=== PATIENT | female | born 1985 | race Caucasian/White ===

== ENCOUNTER 2021-08-14 04:13 | Outpatient (CLI) | payer BC, SELFPAY ==
[2021-08-14 11:06] LABS: HCG Quant, Pregnancy 1568 mIU/mL (1-3)
[2021-08-14 16:52] LABS: Estradiol 164 pg/mL (See Note); Progesterone 20.1 ng/mL (See Table)
== END 2021-08-14 04:14 | disposition home or self-care (01) ==
LOC: LBO 04:13
PROVIDERS: PCP Nurse Practitioner; Visit Provider Obstetrics & Gynecology
DX: Z32.00 Encounter for pregnancy test, result unknown (principal)
CPT/HCPCS: 36415; 82670; 84144; 84702

== ENCOUNTER 2021-08-16 02:44 | Outpatient (CLI) | payer BC, SELFPAY ==
[2021-08-16 09:00] LABS: HCG Quant, Pregnancy 3886 mIU/mL (1-3)
[2021-08-16 18:35] LABS: Estradiol 139 pg/mL (See Note); Progesterone 30.2 ng/mL (See Table)
== END 2021-08-16 02:45 | disposition home or self-care (01) ==
LOC: LBO 02:44
PROVIDERS: PCP Nurse Practitioner; Visit Provider Obstetrics & Gynecology
DX: Z32.00 Encounter for pregnancy test, result unknown (principal)
CPT/HCPCS: 36415; 82670; 84144; 84702

== ENCOUNTER 2021-10-09 02:33 | Outpatient (CLI) | payer OTHER, SELFPAY ==
[2021-10-09 11:33] LABS: Abs Immature Grans 0.03 10^3/uL (0.0-0.06); Absolute Basophil Count 0.04 10^3/uL (0.0-0.2); Absolute Eosinophil Count 0.06 10^3/uL (0.0-0.7); Absolute Lymphocyte Count 1.63 10^3/uL (1.2-3.4); Absolute Monocyte Count 0.47 10^3/uL (0.1-0.8); Absolute Neutrophil Count 4.73 10^3/uL (1.2-6.7); Basophils % 0.6; Eosinophils % 0.9; HGB 12.9 g/dL (11.2-15.7); Immature Grans % 0.4; Lymphocytes % 23.4; MCH 30.1 pg (27.0-33.0); MCHC 33.1 % (32.0-36.0); MCV 90.9 fL (80-95); MPV 11.7 fL (8.0-11.0); Monocytes % 6.8; Neutrophils % 67.9; Nucleated RBC 0 %; Platelet Count 189 10^3/uL (130-400); RBC 4.29 10^6/uL (3.93-5.22); RDW 13.7 % (11.7-14.6); WBC 6.96 10^3/uL (4.4-10.8)
[2021-10-10 10:36] LABS: HIV-1/2 Ag & Ab Screen Negative (Negative)
[2021-10-10 13:42] LABS: Hepatitis B Surface Ag Negative (Negative)
[2021-10-10 14:15] LABS: Hepatitis C Ab w Rflx HCV PCR Negative (Negative)
[2021-10-10 15:05] LABS: Syphilis Total Ab w/Reflex Nonreactive (Nonreactive)
[2021-10-15 00:21] LABS: Result Summary NEGATIVE; Specimen WB Whole Blood
[2021-10-16 01:04] LABS: Specimen WB Whole Blood
== END 2021-10-09 02:34 | disposition home or self-care (01) ==
PROVIDERS: PCP Nurse Practitioner; Visit Provider Advanced Practice Midwife
DX: Z34.91 Encounter for supervision of normal pregnancy, unspecified, first trimester (principal)
CPT/HCPCS: 36415; 81329; 86803; 86850; 86900; 86901; 87340; 87389; 81220; 85025; 86780

== ENCOUNTER 2021-10-09 16:54 | Outpatient (REF) | payer OTHER, SELFPAY ==
[2021-10-09 14:41] LABS: *AMPHETAMINES SCREEN URINE Negative (Negative); *BARBITURATES SCREEN URINE Negative (Negative); *BENZODIAZEPINES SCREEN URINE Negative (Negative); Cannabinoids THC Negative (Negative); Cocaine Screen,Urine Negative (Negative); METHADONE URINE SCREEN Negative (Negative); OPIATES URINE SCREEN Negative (Negative); Tricyclic Antidepressants Negative (Negative)
[2021-10-14 15:00] LABS: Buprenorphine Negative ng/mL (Cutoff: 5.0); Norbuprenorphine Negative ng/mL (Cutoff: 2.5)
== END 2021-10-09 16:55 | disposition home or self-care (01) ==
LOC: LBN 16:54
PROVIDERS: PCP Nurse Practitioner; Visit Provider Advanced Practice Midwife
DX: O09.511 Supervision of elderly primigravida, first trimester (principal)
CPT/HCPCS: 80307; 87086

== ENCOUNTER 2022-02-16 02:42 | Outpatient (CLI) | payer OTHER, SELFPAY ==
[2022-02-16 16:55] LABS: Abs Immature Grans 0.44 10^3/uL (0.0-0.06); Absolute Basophil Count 0.07 10^3/uL (0.0-0.2); Absolute Eosinophil Count 0.09 10^3/uL (0.0-0.7); Absolute Lymphocyte Count 1.85 10^3/uL (1.2-3.4); Absolute Monocyte Count 0.91 10^3/uL (0.1-0.8); Absolute Neutrophil Count 7.92 10^3/uL (1.2-6.7); Basophils % 0.6; Eosinophils % 0.8; HCT 34.7 % (36.0-46.0); HGB 11.7 g/dL (11.2-15.7); Immature Grans % 3.9; Lymphocytes % 16.4; MCH 31.6 pg (27.0-33.0); MCHC 33.7 % (32.0-36.0); MCV 94 fL (80-95); Monocytes % 8.1; Neutrophils % 70.2; Platelet Count 231 10^3/uL (130-400); RDW 13.6 % (11.7-14.6); WBC 11.28 10^3/uL (4.4-10.8)
[2022-02-16 17:02] LABS: Glucose,1 Hr (Glucola) 125 mg/dL (80-140)
== END 2022-02-16 02:43 | disposition home or self-care (01) ==
LOC: LBO 02:42
PROVIDERS: PCP Nurse Practitioner; Visit Provider Obstetrics & Gynecology
DX: Z34.03 Encounter for supervision of normal first pregnancy, third trimester (principal); Z3A.30 30 weeks gestation of pregnancy
CPT/HCPCS: 36415; 82950; 85025

== ENCOUNTER → 2022-03-19 02:06 | Outpatient (CLI) | payer OTHER, SELFPAY ==
--- NOTE | 2022-03-19 07:00 | DI.US_ITS ---
Exam(s) US OB CÉSAR WEIGHT EXAM: US OB CÉSAR WEIGHT CLINICAL HISTORY: growth,o09.819. TECHNIQUE: Transabdominal obstetrical ultrasound performed. COMPARISON: US US OB F/U FACIAL/LVOT/RVOT from 01/30/2022 FINDINGS:: Number of fetuses: One. position: Vertex. Placental location: Anterior no evidence of previa. BIOMETRIC DATA: BPD: 91mm = 36+ 5 weeks HC: 304mm = 33 +5 weeks AC: 321mm = 36+ 0 weeks FL: 71 mm = 36+ 1 weeks EFW: 2786 Gms = 65% Composite Age: 35 weeks 5 days EDC: 18 April 2022 Heart Rate: 149BPM Amniotic fluid index: 13.1 cm. Amount of fluid is within normal limits. IMPRESSION: size and weight are within the expected range. DATA REPOSITORY:
== END ==
PROVIDERS: PCP Nurse Practitioner; Visit Provider Obstetrics & Gynecology
DX: O09.813 Supervision of pregnancy resulting from assisted reproductive technology, third trimester (principal); Z3A.35 35 weeks gestation of pregnancy
CPT/HCPCS: 76816

== ENCOUNTER 2022-03-26 16:27 | Outpatient (REF) | payer OTHER, SELFPAY ==
[2022-03-26 20:44] LABS: *AMPHETAMINES SCREEN URINE Negative (Negative); *BARBITURATES SCREEN URINE Negative (Negative); *BENZODIAZEPINES SCREEN URINE Negative (Negative); Cannabinoids THC Negative (Negative); Cocaine Screen,Urine Negative (Negative); METHADONE URINE SCREEN Negative (Negative); OPIATES URINE SCREEN Negative (Negative)
[2022-03-26 21:00] LABS: Tricyclic Antidepressants Negative (Negative)
[2022-03-31 12:33] LABS: Buprenorphine Negative ng/mL (Cutoff: 5.0); Norbuprenorphine Negative ng/mL (Cutoff: 2.5)
== END 2022-03-26 16:28 | disposition home or self-care (01) ==
LOC: LBN 16:27
PROVIDERS: PCP Nurse Practitioner; Visit Provider Obstetrics & Gynecology
DX: Z34.93 Encounter for supervision of normal pregnancy, unspecified, third trimester (principal); Z36.85 Encounter for antenatal screening for Streptococcus B; Z3A.36 36 weeks gestation of pregnancy
CPT/HCPCS: 80307; 87081

== ENCOUNTER 2022-04-20 08:07 | Inpatient (IN) | payer OTHER, SELFPAY ==
[2022-04-20] VITALS (235 sets, daily range): BP systolic 44–121; BP diastolic 24–75; PULSE 0–185; RESP 12; TEMP 36.8–37.6; O2SAT 97–100; BMI 27.1
--- NOTE | 2022-04-20 08:58 | HPE_ITS ---
Date of service: 04/20/22 Time of Service: 08:59 Assessment and Plan Assessment and plan (1) High risk due to assisted reproductive technology: Status: Acute Assessment and plan: Term high risk that has been reasonably uncomplicated. Labor induction due to advanced maternal age. Cervix is favorable approximately 3 to 4 cm. We will begin Pitocin augmentation of labor. Pain control as needed. Anticipate vaginal delivery. All questions were answered. (2) Encounter for supervision of normal intrauterine in primigravida, antepartum: Status: Acute (3) Advanced maternal age (AMA) in : Status: Acute OB-HPI Labor/Delivery History of Present Illness Reason for Visit: PRE MAURA Chief Complaint: Scheduled Induction of Labor Indication for Induction: Other (High risk , advanced maternal age). VALENTINA Calculator Estimated Delivery Date Method Current WG Current Estimate 04/21/22 Conception 39w 6d Other Estimates 04/19/22 LMP (Certain) 40w 1d 04/20/22 Ultrasound #1 40w 0d Comments: Patient seen on the center today for labor induction. She is of advanced maternal age at 39 weeks and 6 days. She is having regular contractions approximately every 4 minutes. History of Present Expected Delivery Route/Plan - MD SANCHEZ - Manan Vasquez. Specific Issues/Plan 1. AMA: normal [place] [facility] [place] consult -Will take ASA due to nullip and AMA. - IOL after 39w EGA. 2. IVF (pt has lean PCOS with anovulation). Pt has 2 adopted kids 8 & 10yrs. 3. Vanishing twin: 2 embryos transfered, at 6wks there were viable twins, then at 8wks only 1 viable 4. Considering TL if needs C/S. Informed Consent Informed Consent: Induction of Labor Review of Systems Narrative: Baby is moving and active. No signs or symptoms of preeclampsia overall doing well Constitutional Constitutional: Reports as per HPI Eyes Eyes: Reports as per HPI and Reports system reviewed and no additional complaints, except as documented ENT Ears, Nose, Mouth, and Throat: Reports system reviewed and no additional complaints, except as documented and Reports as per HPI Cardiovascular Cardiovascular: Reports as per HPI and Reports system reviewed and no additional complaints, except as documented Respiratory Respiratory: Reports as per HPI, Reports system reviewed and no additional complaints, except as documented and Denies cough Gastrointestinal Gastrointestinal: Reports as per HPI and Reports system reviewed and no additional complaints, except as documented Genitourinary Genitourinary: Reports system reviewed and no additional complaints, except as documented and Reports as per HPI Musculoskeletal Musculoskeletal: Reports system reviewed and no additional complaints, except as documented Neurologic Neurologic: Reports system reviewed and no additional complaints, except as documented Psychiatric Psychiatric: Reports system reviewed and no additional complaints, except as documented PFSH All Active Problems (Updated 03/02/22 @ 09:23 by Maria R Campo MD) High risk due to assisted reproductive technology (Acute) Placenta previa affecting delivery (Acute) Encounter for supervision of normal intrauterine in primigravida, antepartum (Acute) (Acute) History of PCOS (Acute) Family history of ankylosing spondylitis (Acute) Family history of multiple sclerosis (Acute) Advanced maternal age (AMA) in (Acute) conceived through in vitro fertilization (Acute) Anxiety (Acute) Medical History (Updated 03/02/22 @ 09:23 by Maria R Campo MD) Elevated hematocrit PCOS (polycystic ovarian syndrome) Plantar wart of right foot Surgical History (Updated 10/09/21 @ 10:17 by Ruthie Santiago CNM) [place] teeth extracted Family History (Updated 10/09/21 @ 10:24 by Ruthie Santiago CNM) Mother , 61 Myelofibrosis Depression Hyperlipidemia Father Depression Hyperlipidemia Sarcoidosis Sister Depression Multiple sclerosis PCOS (polycystic ovarian syndrome) Brother Alcohol use disorder Ankylosing spondylitis of multiple sites in spine Maternal Grandfather , 70 Lung cancer Paternal Grandfather , 62 Pancreas cancer Maternal Grandmother , 78 Asthma Heart disease Paternal Grandmother , 61 Melanoma Breast cancer Self PCOS (polycystic ovarian syndrome) Social History (Updated 12/11/21 @ 08:30 by Jessica Roth MD) Smoking/Tobacco Use Status: Never Second Hand Exposure: Yes Smoking risk assessment performed?: Yes Alcohol Intake: current Alcohol Intake frequency: holidays/special occasions o nly Alcohol type: beer Drug use: Never Substance use type: does not use Caregiver/Support person: No Household members: spouse, children and other Details: [place], Shawn, Housing: house Communication Needs: None Do you need help understanding health information?: Never current occupation: [employer] coordinator. Pets and animals: Yes Pets and animals: cat(s), dog(s) and farm animals Sexually active: Yes Do you think of yourself as: straight/heterosexual Current gender identity: female What is your relationship status?: How often do you talk on the phone with friends or family?: three or more times per week How often do you get together with friends or relatives?: twice per week Do you belong to any clubs or organized social groups?: no Panel score (0-1 are the most socially isolated patients): 2 What type of physical activity do you participate in: walking Duration: 15-30 minutes/day Frequency: 3-4 times per week Opal/Jain: Orthodoxy Special opal needs: No Seatbelt use: always Helmet use: Yes Helmet use: always Drive intox or ride w/intox skidder driver: No Additional Social history: 2 adopted children (one adopted at in 2010 and one foster to adopt born in 2013) History History 1 Para 0 Hx # Term Pregnancies 0 Multiple births 0 Hx # Pregnancies 0 Ectopic pregnancies 0 AB induced 0 Hx Number of Living Children 0 AB spontaneous 0 Meds Allergies and Home Medications Allergies Allergy/AdvReac Type Severity Reaction Status Date / Time No Known Allergies Allergy Verified 04/16/22 08:20 Home Medications Medication Instructions Recorded Confirmed Type prenat.vits,petr,wka-gkje-muvkl 1 tab PO DAILY 09/20/21 04/20/22 History aspirin 81 mg tablet,delayed 81 mg PO DAILY 11/03/21 04/16/22 History release (Adult Aspirin Regimen) citalopram 20 mg tablet 20 mg PO DAILY #90 tabs 11/03/21 04/20/22 Rx magnesium 250 mg tablet 250 mg PO DAILY 03/02/22 04/20/22 History docusate sodium 100 mg tablet 100 mg PO DAILY 04/16/22 04/20/22 History guar gum 1 tbsp PO DAILY 04/16/22 04/20/22 History Exam Physical Exam Vital Signs Reviewed: Yes Constitutional Constitutional: no acute distress Detailed Labor and Delivery Exam Dilation: 4 Effacement (%): 80 station: -2 Position: OA Cervix position: mid Consistency: soft Garza Score: Cervical Points Exam 0 1 2 3 Dilation Closed 1-2cm 3-4 cm 5-6cm Effacement 0-30% 40-50% 60-70% 80% Consistency Firm Medium Soft Station -3 -2 -1,0 +1,+2 Position Posterior Mid Anterior GARZA Score(Cervical Ripeness Score): 9 Amniotic Membrane Status: Intact Contraction Frequency(min): 4 Contraction Duration(sec): 60 Fetus A Heart Rate Baseline: 140 Monitor Accelerations: Present Monitor Decelerations: None Variability: Moderate (6-25 BPM) Presentation: Vertex Categories: Category I HEENT Exam HEENT Exam: Normal Neck Exam Neck Exam: Normal Respiratory Exam Respiratory Exam: Normal Cardiovascular Exam Cardiovascular Exam: Normal Exam Exam: Normal Extremities Exam Extremities Exam: Normal Skin Exam Skin Exam: Normal Psychiatric Exam Psychiatric Exam: Normal Risk Assessment Risk for Shoulder Dystocia Historical/Initial OB: NEGATIVE FOR: Pelvic Abnormality, Pre- BMI>30, Previous Shoulder Dystocia or Previous Macrosomia Date/Initial: 10/09/21 Delivery Plan @ 40 wks: Vaginal delivery. Risk for Pre-Eclampsia Date Initiated/Initials: 10/09/21: Yes, if one or more: NEGATIVE FOR: Hx Pre-E/Gest HTN, Chronic HTN, Multiple Gestation, Pre-gestational DM, Renal Disease, Systemic Lupus or APA Syndrome Yes, if 2 or more: POSITIVE FOR: Nulliparity and Age>= 35 yrs; NEGATIVE FOR: >10yr btwn pregnancies, BMI>30, ethinicty, Mother/Sister w/ Pre-E or Previous IUGR Risk for Post- Hemorrhage Initial: NEGATIVE FOR: Multiple Gestation, Previous PPH, Known Clotting Deficiency, Grand Multiparity or Anticoagulation Risks Reviewed Risks Reviewed Upon Admission: Yes
[2022-04-20 09:20] LABS: Source Nasal/Nares
[2022-04-20] MEDS: Lactated Ringers 1,000 ML 125 ML IV ×2 (09:20→19:48)
[2022-04-20 09:22] LABS: HCT 42.4 % (36.0-46.0); HGB 14.7 g/dL (11.2-15.7); MCH 31.7 pg (27.0-33.0); MCHC 34.7 % (32.0-36.0); MCV 92 fL (80-95); MPV 11.8 fL (8.0-11.0); Platelet Count 181 10^3/uL (130-400); RBC 4.63 10^6/uL (3.93-5.22); RDW 14.3 % (11.7-14.6)
[2022-04-20] MEDS: Oxytocin/Normal Saline 30 UNIT/500 ML BAG 2 UNITS IV (09:27)
[2022-04-20 10:12] LABS: COVID-19 PCR Negative (Negative)
--- NOTE | 2022-04-20 12:19 | W.PM.OBNL1 ---
Date of service: 04/20/22 Time of Service: 12:19 Informed Consent Informed Consent: Induction of Labor Assessment and Plan Assessment and plan (1) High risk due to assisted reproductive technology: Status: Acute Assessment and plan: Labor induction at term. Continue Pitocin augmentation. Will perform artificial rupture of membranes when cervix more dilated. Pain control as needed. Anesthesia aware. Objective Abnormal lab results 04/20/22 Range/Units 09:15 WBC 11.00 H (4.4-10.8) 10^3/uL MPV 11.8 H (8.0-11.0) fL Temp Pulse Resp BP 98.8 F 90 12 112/75 04/20/22 09:42 04/20/22 12:19 04/20/22 09:42 04/20/22 12:19 Laboratory Results WBC 11.00 10^3/uL (4.4-10.8) H 04/20/22 09:15 RBC 4.63 10^6/uL (3.93-5.22) 04/20/22 09:15 Hgb 14.7 g/dL (11.2-15.7) 04/20/22 09:15 Hct 42.4 % (36.0-46.0) 04/20/22 09:15 MCV 92 fL (80-95) 04/20/22 09:15 MCH 31.7 pg (27.0-33.0) 04/20/22 09:15 MCHC 34.7 % (32.0-36.0) 04/20/22 09:15 RDW 14.3 % (11.7-14.6) 04/20/22 09:15 Plt Count 181 10^3/uL (130-400) 04/20/22 09:15 MPV 11.8 fL (8.0-11.0) H 04/20/22 09:15 COVID-19 Source Nasal/Nares 04/20/22 08:55 SARS-CoV-2 (PCR) Negative (Negative) 04/20/22 08:55 Patient ABO/Rh A Positive 04/20/22 09:15 Antibody Screen NEGATIVE 04/20/22 09:15 Subjective Patient Reports: No new Complaints Interval history since last seen: Patient is doing well. Pain is well controlled. Contractions are coming more frequently and slightly more intense but not particularly painful. Results Hemoglobin/Hematocrit: Hgb 14.7 g/dL (11.2-15.7) 04/20/22 09:15 Hct 42.4 % (36.0-46.0) 04/20/22 09:15 Abnormal Lab Findings: Abnormal Labs 04/20/22 09:15 WBC 11.00 H MPV 11.8 H
--- NOTE | 2022-04-20 13:20 | W.ANESPRE ---
General Info Date of Service Date Performed: 04/20/22 Height: 5 ft 4.75 in Weight: 73.482 kg Body Mass Index (BMI): 27.1 Meds Allergies and Home Medications Allergies Allergy/AdvReac Type Severity Reaction Status Date / Time No Known Allergies Allergy Verified 04/16/22 08:20 Home Medication Medication Instructions Recorded prenat.vits,petr,ddc-bole-zbqjo 1 tab PO DAILY 09/20/21 aspirin 81 mg tablet,delayed 81 mg PO DAILY 11/03/21 release (Adult Aspirin Regimen) citalopram 20 mg tablet 20 mg PO DAILY #90 tabs 11/03/21 magnesium 250 mg tablet 250 mg PO DAILY 03/02/22 docusate sodium 100 mg tablet 100 mg PO DAILY 04/16/22 guar gum 1 tbsp PO DAILY 04/16/22 Current Visit Medications: Current Medications Generic Name Dose Route Start Last Admin Trade Name Freq PRN Reason Stop Dose Admin Sodium Chloride 500 mls @ 0 mls/hr 04/20/22 08:56 Saline 500ml Bag IV PRN PRN As Directed Oxytocin/Sodium Chloride 30 unit in 500 mls @ 1 mls/hr 04/20/22 09:00 04/20/22 13:14 Pitocin/Normal Saline IV 16 milliunits/min INFUSION YING 16 mls/hr Titration Protocol 1 MILLIUNITS/MIN Ringer's Solution 1,000 mls @ 125 mls/hr 04/20/22 09:00 04/20/22 09:20 IV 125 mls/hr INFUSION YING Administration IV Miscellaneous Supplies 1 each 04/20/22 09:00 Iv Access IV DIRECTED YING Sodium Chloride 0 ml 04/20/22 08:56 Normal Saline Flush 10 Ml Syr IVP PRN PRN PFSH Active Problems Active Problems: Problem Status Onset Code High risk due to assisted reproductive technology O09.819 Placenta previa affecting delivery O44.00 Encounter for supervision of normal intrauterine in primigravida, antepartum Z34.00 Z34.90 History of PCOS Z87.42 Family history of ankylosing spondylitis Z82.69 Family history of multiple sclerosis Z82.0 Advanced maternal age (AMA) in conceived through in vitro fertilization O09.819 Anxiety F41.9 Medical History Medical History (Updated 03/02/22 @ 09:23 by Maria R Campo MD) Elevated hematocrit PCOS (polycystic ovarian syndrome) Plantar wart of right foot Surgical History Surgical History (Updated 10/09/21 @ 10:17 by Ruthie Santiago CNM) [place] teeth extracted Tobacco Smoking/Tobacco Use Status: Never Second hand exposure: Yes Alcohol Alcohol Intake: current Alcohol intake frequency: holidays/special occasions only Alcohol type: beer Substance Use Substance use: Never Substance use type: does not use Prental History History 1 Para 0 Hx # Term Pregnancies 0 Multiple births 0 Hx # Pregnancies 0 Ectopic pregnancies 0 AB induced 0 Hx Number of Living Children 0 AB spontaneous 0 Vital Signs and Lab Results Vital Signs Most Recent Vital Signs in EMR: Most Recent Vital Signs Temp Pulse Resp BP 37.1 C 91 H 12 112/75 04/20/22 09:42 04/20/22 13:16 04/20/22 09:42 04/20/22 12:19 Lab Results Result Diagrams: 04/20/22 09:15 Blood Type / Crossmatch: Patient ABO/Rh A Positive 04/20/22 Antibody Screen NEGATIVE 04/20/22 Complete Blood Count: White Blood Count 11.00 10^3/uL (4.4-10.8) H 04/20/22 09:15 Red Blood Count 4.63 10^6/uL (3.93-5.22) 04/20/22 09:15 Hemoglobin 14.7 g/dL (11.2-15.7) 04/20/22 09:15 Hematocrit 42.4 % (36.0-46.0) 04/20/22 09:15 Platelet Count 181 10^3/uL (130-400) 04/20/22 09:15 Complete Metabolic Panel: No Data to Display Liver Function Panel: No Data to Display Coagulation Panel: No Data to Display Cardiac Panel: No Data to Display Arterial Blood Gas: No Data to Display Venous Blood Gas: No Data to Display Pancreas Panel: No Data to Display Thyroid Panel: No Data to Display Infectious Disease: Coronavirus (COVID-19)(PCR) Negative (Negative) 04/20/22 08:55 Coronavirus 2019 Source Nasal/Nares 04/20/22 08:55 Blood Cultures: No Data to Display Toxicology Panel: Urine Amphetamines Screen Negative (Negative) 03/26/22 14:45 Urine Benzodiazepines Screen Negative (Negative) 03/26/22 14:45 Urine Barbiturates Screen Negative (Negative) 03/26/22 14:45 Urine Cocaine Screen Negative (Negative) 03/26/22 14:45 Urine Methadone Screen Negative (Negative) 03/26/22 14:45 Urine Opiates Screen Negative (Negative) 03/26/22 14:45 Ur Tricyclic Antidepressants Screen Negative (Negative) 03/26/22 14:45 Ur Tetrahydrocannabinol (THC) Scrn Negative (Negative) 03/26/22 14:45 Panel: No Data to Display Anesthesia Assessment and Plan Anesthesia History Personal History: No History of Anesthesia Complications Family History: No Family History of Anesthesia Complications Exercise Tolerance Exercise Tolerance: Metabolic Equivalents>4 Pertinent Negatives Pertinent Negatives: No Major Cardiovascular Symptoms or Complaints, No Major Pulmonary Symptoms or Complaints and No History of CVA/TIA Cardiac & Pulmonary Exam Cardiac Exam: Normal S1/S2 Heart Sounds Pulmonary Exam: Clear Bilateral Breath Sounds Implantable Cardiac Device Does patient have a Pacemaker or an ICD?: No Airway Exam Known Difficult Airway: No Mallampati Class: 2 Mouth Opening: Normal (> 3cm) Thyromental Distance: Greater than 3 cm Neck Range of Motion: Full ROM Neck Circumference: Normal Teeth Condition: Normal Dentition ASA Classification ASA Score: ASA 2 Emergency Case?: No NPO Status NPO Status: Full Stomach Status Status: Confirmed Anesthesia Plan Resuscitation Status: Full Code Anesthesia Technique: Epidural Anesthesia (GA with ETT emergency backup) Airway Planned: Natural Airway Pain Management: Surgeon and patient request nerve block Monitors Used: Standard Monitors Preoperative Comments:: Reports some recent sciatica on right side. Patient states she believes it might be the babys position.
--- NOTE | 2022-04-20 14:15 | W.PM.OBNL1 ---
Date of service: 04/20/22 Time of Service: 14:15 Informed Consent Informed Consent: Induction of Labor Pelvic Exam Dilation: 4 Effacement (%): 80 station: -2 Position: OA Cervix Position: mid Consistency: soft Comments: Artificial rupture of membranes for lightly meconium stained fluid Fetus A Monitor: External (US) Heart Rate Baseline: 135 Presentation: Cephalic Variability: Moderate (6-25 BPM) Categories: Category I FHR Rhythm: Regular Accelerations: 15 X 15 Amniotic Membrane Status: Ruptured Rupture Method: Artifical Amniotic Fluid: Meconium (Light) Amount: Moderate Date of Membrane Rupture: 04/20/22 Time of Membrane Rupture: 14:17 Assessment and Plan Assessment and plan (1) High risk due to assisted reproductive technology: Status: Acute Assessment and plan: Term labor induction. Pitocin at 18 milliunits. Contractions every 3 minutes. Artificial rupture of membranes for light meconium stained fluid. Cervix is 4 cm, 80%, -2. Patient will want epidural when her pain is worse. All questions were answered. Continue current management. Anticipate vaginal delivery Objective Abnormal lab results 04/20/22 Range/Units 09:15 WBC 11.00 H (4.4-10.8) 10^3/uL MPV 11.8 H (8.0-11.0) fL Temp Pulse Resp BP 98.8 F 89 12 112/75 04/20/22 09:42 04/20/22 14:12 04/20/22 09:42 04/20/22 12:19 Laboratory Results WBC 11.00 10^3/uL (4.4-10.8) H 04/20/22 09:15 RBC 4.63 10^6/uL (3.93-5.22) 04/20/22 09:15 Hgb 14.7 g/dL (11.2-15.7) 04/20/22 09:15 Hct 42.4 % (36.0-46.0) 04/20/22 09:15 MCV 92 fL (80-95) 04/20/22 09:15 MCH 31.7 pg (27.0-33.0) 04/20/22 09:15 MCHC 34.7 % (32.0-36.0) 04/20/22 09:15 RDW 14.3 % (11.7-14.6) 04/20/22 09:15 Plt Count 181 10^3/uL (130-400) 04/20/22 09:15 MPV 11.8 fL (8.0-11.0) H 04/20/22 09:15 COVID-19 Source Nasal/Nares 04/20/22 08:55 SARS-CoV-2 (PCR) Negative (Negative) 04/20/22 08:55 Patient ABO/Rh A Positive 04/20/22 09:15 Antibody Screen NEGATIVE 04/20/22 09:15 Results Hemoglobin/Hematocrit: Hgb 14.7 g/dL (11.2-15.7) 04/20/22 09:15 Hct 42.4 % (36.0-46.0) 04/20/22 09:15 Abnormal Lab Findings: Abnormal Labs 04/20/22 09:15 WBC 11.00 H MPV 11.8 H
[2022-04-20] MEDS: Lactated Ringers 1,000 ML 999 ML IV (15:35)
--- NOTE | 2022-04-20 16:02 | W.ANESNEU ---
Epidural/Spinal Catheter Date Performed: 04/20/22 Procedure Start: 15:39 Procedure Stop: 15:51 Requesting Provider: Faustina Aguilar Procedure Location: Obstetrics (304) Reason Performed: Labor Epidural Standard Monitors Applied: Blood Pressure and SpO2 Patient Position: Sitting Sedation Given (Indicate Dose Given): No Sedation given Patient Mental Status: Awake Sterility: Hand Hygiene, Surgical Cap, Surgical Mask, Sterile Gloves, Sterile Drape/Sheet and Chlorhexidine Procedure Location: L2-L3 Interspace Epidural Needle: Tuohy 17 Guage Needle Length: 3.5 Inch Needle Approach: Midline Epidural Procedure: Skin Prepped, Sterile Drape Placed, 1% Lidocaine to skin and subcutaneous tissue with 25G needle, Tuohy Needle placed, JORGE to Saline Used, Epidural Catheter Placed, Negative Heme, Negative CSF Flow and Tuohy Needle Removed Catheter Placed?: Catheter Placed Test Dose (Indicate Dose Given): 5ml 1.5% Lidocaine with 1:200K Epinephrine Given and Negative Test Dose Loss of Resistance Depth (cm): 6 Catheter depth at skin (cm): 12 Dressing: Sorbaview Dressing Placed, Mastisol Used and Dressing reinforced with Tape Epidural Provider Bolus (Indicate Dose Given): Total Ropivacaine 0.125% with Fentanyl 2mcg/ml Given from pump. (ml) Dose:: 10 ml Additives (Indicate Dose Given ): None Infusion Medication: Medication Infusion Began Medication Infusion: Ropivacaine 0.125% with Fentanyl 2mcg/ml Maintenance Infusion Rate (ml/hour): 10 PCEA Bolus Dose (ml): 5 Block Level: T10 Paresthesia: None Ultrasound: Not Used Number of Attempts (See previous attempts in note section): 1 Procedure Tolerated: No Complications and Patient tolerated well Procedure Outcome: Successful Performed By: Malick Ojeda
--- NOTE | 2022-04-20 17:54 | W.PM.OBNL1 ---
Date of service: 04/20/22 Time of Service: 17:55 Informed Consent Informed Consent: Induction of Labor Pelvic Exam Dilation: 6 station: -1 Position: OA Cervix Position: mid Consistency: soft Contractions Monitor Mode: External Contraction Frequency(min): 3 Fetus A Heart Rate Baseline: 130 Presentation: Vertex Variability: Moderate (6-25 BPM) Accelerations: 15 X 15 Objective Abnormal lab results 04/20/22 Range/Units 09:15 WBC 11.00 H (4.4-10.8) 10^3/uL MPV 11.8 H (8.0-11.0) fL Temp Pulse Resp BP Pulse Ox 98.2 F 69 12 108/69 99 04/20/22 17:25 04/20/22 17:52 04/20/22 09:42 04/20/22 17:22 04/20/22 17:44 Laboratory Results WBC 11.00 10^3/uL (4.4-10.8) H 04/20/22 09:15 RBC 4.63 10^6/uL (3.93-5.22) 04/20/22 09:15 Hgb 14.7 g/dL (11.2-15.7) 04/20/22 09:15 Hct 42.4 % (36.0-46.0) 04/20/22 09:15 MCV 92 fL (80-95) 04/20/22 09:15 MCH 31.7 pg (27.0-33.0) 04/20/22 09:15 MCHC 34.7 % (32.0-36.0) 04/20/22 09:15 RDW 14.3 % (11.7-14.6) 04/20/22 09:15 Plt Count 181 10^3/uL (130-400) 04/20/22 09:15 MPV 11.8 fL (8.0-11.0) H 04/20/22 09:15 COVID-19 Source Nasal/Nares 04/20/22 08:55 SARS-CoV-2 (PCR) Negative (Negative) 04/20/22 08:55 Patient ABO/Rh A Positive 04/20/22 09:15 Antibody Screen NEGATIVE 04/20/22 09:15 Subjective Interval history since last seen: Patient is seen and examined this evening. Doing well. Comfortable with epidural. Category 1 tracing. Contractions every 3 minutes. Reasonable cervical change with cervix that is 6 cm, 80%, -1 station. Results Hemoglobin/Hematocrit: Hgb 14.7 g/dL (11.2-15.7) 04/20/22 09:15 Hct 42.4 % (36.0-46.0) 04/20/22 09:15 Abnormal Lab Findings: Abnormal Labs 04/20/22 09:15 WBC 11.00 H MPV 11.8 H
--- NOTE | 2022-04-20 19:25 | W.PM.OBNL1 ---
Date of service: 04/20/22 Time of Service: 19:25 Informed Consent Informed Consent: Induction of Labor Pelvic Exam Dilation: 9 Effacement (%): 100 station: +1 Position: OA Contractions Monitor Mode: External Contraction Frequency(min): 3 Contraction Duration(sec): 60 Fetus A Heart Rate Baseline: 130 Variability: Moderate (6-25 BPM) Categories: Category I Objective Abnormal lab results 04/20/22 Range/Units 09:15 WBC 11.00 H (4.4-10.8) 10^3/uL MPV 11.8 H (8.0-11.0) fL Temp Pulse Resp BP Pulse Ox 98.2 F 84 12 101/63 99 04/20/22 18:27 04/20/22 19:24 04/20/22 09:42 04/20/22 18:27 04/20/22 17:44 Laboratory Results WBC 11.00 10^3/uL (4.4-10.8) H 04/20/22 09:15 RBC 4.63 10^6/uL (3.93-5.22) 04/20/22 09:15 Hgb 14.7 g/dL (11.2-15.7) 04/20/22 09:15 Hct 42.4 % (36.0-46.0) 04/20/22 09:15 MCV 92 fL (80-95) 04/20/22 09:15 MCH 31.7 pg (27.0-33.0) 04/20/22 09:15 MCHC 34.7 % (32.0-36.0) 04/20/22 09:15 RDW 14.3 % (11.7-14.6) 04/20/22 09:15 Plt Count 181 10^3/uL (130-400) 04/20/22 09:15 MPV 11.8 fL (8.0-11.0) H 04/20/22 09:15 COVID-19 Source Nasal/Nares 04/20/22 08:55 SARS-CoV-2 (PCR) Negative (Negative) 04/20/22 08:55 Patient ABO/Rh A Positive 04/20/22 09:15 Antibody Screen NEGATIVE 04/20/22 09:15 Subjective Interval history since last seen: Patient seen, having more mucoid discharge along with bloody show. Comfortable with epidural. Cervical exam is not 9 cm, +1 station. Category 1 heart rate tracing. Anticipate vaginal delivery. Continue Pitocin augmentation at 14 milliunits Results Hemoglobin/Hematocrit: Hgb 14.7 g/dL (11.2-15.7) 04/20/22 09:15 Hct 42.4 % (36.0-46.0) 04/20/22 09:15 Abnormal Lab Findings: Abnormal Labs 04/20/22 09:15 WBC 11.00 H MPV 11.8 H
[2022-04-20] MEDS: Acetaminophen 500 MG TAB (21:58)
--- NOTE | 2022-04-20 22:09 | W.PM.OBNL1 ---
Date of service: 04/20/22 Time of Service: 22:09 Informed Consent Informed Consent: Induction of Labor Objective Abnormal lab results 04/20/22 Range/Units 09:15 WBC 11.00 H (4.4-10.8) 10^3/uL MPV 11.8 H (8.0-11.0) fL Temp Pulse Resp BP Pulse Ox 99.7 F H 101 H 12 119/61 99 04/20/22 21:58 04/20/22 22:08 04/20/22 09:42 04/20/22 21:26 04/20/22 17:44 Laboratory Results WBC 11.00 10^3/uL (4.4-10.8) H 04/20/22 09:15 RBC 4.63 10^6/uL (3.93-5.22) 04/20/22 09:15 Hgb 14.7 g/dL (11.2-15.7) 04/20/22 09:15 Hct 42.4 % (36.0-46.0) 04/20/22 09:15 MCV 92 fL (80-95) 04/20/22 09:15 MCH 31.7 pg (27.0-33.0) 04/20/22 09:15 MCHC 34.7 % (32.0-36.0) 04/20/22 09:15 RDW 14.3 % (11.7-14.6) 04/20/22 09:15 Plt Count 181 10^3/uL (130-400) 04/20/22 09:15 MPV 11.8 fL (8.0-11.0) H 04/20/22 09:15 COVID-19 Source Nasal/Nares 04/20/22 08:55 SARS-CoV-2 (PCR) Negative (Negative) 04/20/22 08:55 Patient ABO/Rh A Positive 04/20/22 09:15 Antibody Screen NEGATIVE 04/20/22 09:15 Subjective Interval history since last seen: Patient has now been pushing for approximately 1 hour. Good maternal effort. No maternal exhaustion. heart tones intermittently as high as 190, baseline 170s. Maternal temperature of 99.6. Fluid bolus given. Oral Tylenol given. Anesthesia in OR crew notified. Pediatrics notified. Patient understands that there may be need for operative vaginal delivery versus section. We will continue with pushing effort as baby has good Variability. Results Hemoglobin/Hematocrit: Hgb 14.7 g/dL (11.2-15.7) 04/20/22 09:15 Hct 42.4 % (36.0-46.0) 04/20/22 09:15 Abnormal Lab Findings: Abnormal Labs 04/20/22 09:15 WBC 11.00 H MPV 11.8 H
[2022-04-20] MEDS: Oxytocin/Normal Saline 30 UNIT/500 ML BAG 167 UNITS IV (23:28)
--- NOTE | 2022-04-20 23:37 | PLAC_PTH ---
PATIENT: Bren Vasquez LOC: OBS U#:[id number] AGE/SX: 36/F ROOM: OBS.304 RE04/20/[address]: Maria R Campo MD : 1985 BED: A DIS: 04/23/2022 SPEC #: [id number] RECD: 04/24/22 12:47 STATUS: MELANI REQ #: [id number] MARCELO: 04/20/22 23:[address]: Maria R Campo DEPT: Surgical Specimen RECD BY: Leonie Andrews ENTERED: 04/24/22 12:48 SP TYPE: PLAC OTHR DR: Gela Suarez, PhD CODING AND REIMBURSEMENT SPECIALIST Tissues: 1 - PLACENTA (3RD TRIMESTER) Procedures: GROSS AND MICRO LEVEL 5 Comments: [id number]
[2022-04-20] MEDS: Lidocaine 1% Multi-Dose 20 ML VIAL IJ (23:45)
[2022-04-21] VITALS (99 sets, daily range): BP systolic 74–116; BP diastolic 38–79; PULSE 78–170; RESP 16–17; TEMP 36.8–37.4; O2SAT 96–100
[2022-04-21] MEDS: miSOPROStol 200 MCG TAB 400 MCG SL (00:10)
[2022-04-21] MEDS: Tranexamic Acid 1,000 MG/10 ML VIAL 1000 MG (00:13)
[2022-04-21 00:52] LABS: Abs Immature Grans 0.25 10^3/uL (0.0-0.06); HGB 10.5 g/dL (11.2-15.7); MCH 31.9 pg (27.0-33.0); MCHC 33.9 % (32.0-36.0); MCV 94 fL (80-95); MPV 12.1 fL (8.0-11.0); Platelet Count 177 10^3/uL (130-400); RBC 3.29 10^6/uL (3.93-5.22); RDW 14.3 % (11.7-14.6); RDW-SD 48.6 fL; WBC 22.62 10^3/uL (4.4-10.8)
[2022-04-21] MEDS: Lactated Ringers 1,000 ML 999 ML IV (00:55)
[2022-04-21] MEDS: Lactated Ringers 1,000 ML 150 ML IV (00:56)
[2022-04-21 01:05] LABS: Absolute Lymphocyte Count 1.81 10^3/uL (1.2-3.4); Absolute Monocyte Count 2.71 10^3/uL (0.1-0.8); Diff Comment Manual Differential; RBC Morphology Normal
[2022-04-21 01:07] LABS: PTT Activated 25.4 sec (21.0-27.5); Prothrombin Time 10.4 sec (9.3-11.0)
--- NOTE | 2022-04-21 01:50 | PDOC.ANES ---
Date of service: 04/21/22 Time of Service: 01:50 Anesthesia Note Report Anesthesia Note: Called to bedside for patient with epidural in place, patient was immediately post- and appeared to have had significant blood loss. Patient was symptomatically hypotensive and tachycardic. I assessed at bedside, retrieved phenylephrine and administered throughout my time at bedside two IVP doses of 80 mcg a piece and two of 160 mcg a piece. Patient responded well overall with to the medicine in conjunction with an ongoing fluid bolus and eventually blood to the bedside. I did establish PIV access to the left AC (18G) and blood was run through it. Near the end of my care at bedside for this episode patient noted that she was experiencing pain from the IV radiating down to her left thumb and in her elbow. IV site assessed and patent with good blood return. No exacerbation of pain with IV flush. Blood discontinued from that site and moved to her right hand 20G. On further discussion with patent and due to ongoing discomfort PIV was removed from left AC by RN. Please see OB RN notes regarding timeline and trended VS. I discussed care with patient and spouse, denied current questions. I will see the patient again in the morning.
--- NOTE | 2022-04-21 02:15 | OBVDS_ITS ---
Date of service: 04/21/22 Time of Service: 02:15 OB Labor/ Delivery Information Baby A Delivery Delivery Method: Spontaneaous Presentation: Vertex Cephalic Position: Vertex Vertex Position: Right Occipital Anterior Cord Description-Baby A: 3 Vessels Cord Description Comment: long Amniotic Fluid: Bloody Estimated Blood Loss: ~1000 during delivery process, QBL post delivery 1125 Delivery Outcome: Liveborn Infant Complications: none Providers Doctor: Faustina Aguilar Campaign Director: Allen Mackey Nurse: Petra Jaimes Nurse: Sae Patel Labor/Delivery Information Number of Babies in Womb: 1 Steroids Given: None Reason Steroids Not Administered: N/A Group Beta Strep: Negative Antibiotics Administered: No Rubella Status: Immune Blood Type: A+ Varicella Immunity: Immune Shoulder Dystocia: No Note: Patient was admitted on 04/20/2022 for labor induction at 39-5/7 weeks gestation due to advanced maternal age and history of high risk due to IVF. On presentation, she had been noted to be in early active labor with a cervix that was 3 cm dilated. She had Pitocin augmentation of her labor and artificial rupture of membranes at approximately 2 PM. At approximately 4 PM she had epidural for pain control and continue to dilate her cervix. She progressed to the point that she had full cervical dilation and good pain control with her epidural. Second stage huddle was performed. Total course of pushing was approximately 2 hours and 25 minutes. During the second hour of pushing, baby had tachycardia with heart rate in the 170s to 180s. In light of this fact, maternal vital signs were taken, maternal pulse was in the 120s with a temperature of 99.6. Patient received a fluid bolus of the 500 cc of normal saline and 1 g of Tylenol orally. heart rate tracing improved to a category 1 strip with heart tones in the 150s to 160s. During the period of elevated heart rate tracing, pediatric service, was notified for presentation during delivery. Anesthesia was also notified, as was the OR crew who were already present in house. Conversation was had with the patient and her regarding heart rate tracing and intolerance of labor. During the course of her labor she was noted to have some blood tinged fluid with her pushing efforts. She went to have a normal spontaneous vaginal delivery of a viable male infant with Apgars 9 and 9. Placenta delivered approximately 19 minutes later and was noted to be intact. After the time of her placental delivery, she continued to have a moderate amount of bleeding. Uterus was massaged, she received oxytocin, along with 800 mcg of Perez Postel rectally. Uterine tonicity was reasonable at that point. On inspection there was noted to be a 3rd degree perineal laceration. Cervix was visualized and normal. Exploration of the uterine cavity revealed no retained tissue and a uterus that was firm. There is also noted to be hemostatic first-degree laceration near to the clitoral simpson. Shortly after exploration of the uterine cavity, patient stated that she felt poorly, vital signs were obtained with a blood pressure in the 40s over 20s and pulse of 150. Anesthesia was notified for additional assistance. Patient did receive pressors with Irineo-Synephrine over the course of the total of 4 doses. Qualitative blood loss after delivery of the baby and before the placenta was 1125 ml. With appropriate uterine tonicity, repair of the third-degree laceration was performed with reapproximation of the rectal sphincter, vaginal mucosa, and perineal tissue. This was then noted to be hemostatic. Patient had a Freitas catheter inserted for continuous bladder drainage and accurate monitoring her for urinary output. In light of the high volume of blood loss, decision was made to type and cross for 2 units of packed red blood cells. Over the course of the immediate 2 hours postdelivery, stabilization and supportive care was ongoing. Conversation was had with both the patient and her regarding the events of delivery, and a very thorough debriefing will be had when patient is significantly improved. Stages of Labor Onset of Labor Date: 04/20/22 Onset of Labor Time: 09:00 Complete Dilatation Date: 04/20/22 Labor - Stage 1 Duration: 0 minutes ROM Baby A: 04/20/22 ROM Baby A: 14:10 Infant Delivery Date-Baby A: 04/20/22 Delivery Time-Baby A: 23:19 Placenta Delivery Date-Baby A: 04/20/22 Placenta Delivery Time-Baby A: 23:37 Labor-Stage 3 Duration: 18 minutes Total Length of Labor-Baby A: 14 hours and 19 minutes Placenta Status: Delivered Baby A Gender: Male Gestational Status: Term (39-41.6 wks) Gestational Age in Weeks/Days: 39 Weeks and 6 Days Score-1 Minute Interval(Baby A) Heart Rate-1 minute: 100 BPM or Greater Respiratory Effort- 1 minute: Spontaneous/Strong Cry Muscle Tone-1 minute: Active Movement Reflex Response-1 minute: Prompt Response Color-1 minute: Bluish Hands or Feet Total Score-1 minute: 9 Score-5 Minute Interval(Baby A) Heart Rate- 5 minute: 100 BPM or Greater Respiratory Effort-5 minute: Spontaneous/Strong Cry Muscle Tone-5 minute: Active Movement Reflex Response-5 minute: Prompt Response Color-5 minute: Bluish Hands or Feet Total Score- 5 minute: 9 Interventions Augmentation , Pitocin rate (mU/min): 167/ Repair of Laceration/ Other (Resuscitation with fluids, packed red blood cells) Hemorrrhage Note Hemorrhage Recognized Date Hemorrhage Recognized: 04/20/22 Time Hemorrhage Recognized: 11:45 Call for Help Date: 04/20/22 Time: 11:45 2nd RN in Room Date: 04/20/22 Provider in Room Date: 04/20/22 Bimanual Uterine Compression Date: 04/20/22 Time: 11:45 RN Poultry Vaccinator Notified Date: 04/20/22 QBL Scale in Room Date: 04/20/22 OB Emergency Cart at Bedside Date: 04/20/22 IV Site Left Antecubital: IV Catheter Gauge: 18 Blood Started Date: 04/21/22 Time: 01:00 Total Blood Loss for PPH Event Quantitative Blood Loss: 112 Labs Drawn Labs Drawn: Yes
--- NOTE | 2022-04-21 04:32 | NUR.NOTE ---
Nursing Note:RN continously at bedside monitoring status, FHR baseline was at 155 having moderate variability and category 1 with initiation of pushing at 2100, has since progress to 175, moderate variability threwout this time, periodic variable decels. MD also continously at bedside and aware of tracing.
--- NOTE | 2022-04-21 04:52 | NUR.NOTE ---
Nursing Note:Continuosly at bedside, tracing remains category 2 with architecture drafter at bedside and OR crew in house, baseline has trended down from 175 to 155 over the last hour, moderate variability threwout this time, episodic variable decels noted, as well as accels.
[2022-04-21 06:23] LABS: HCT 34.9 % (36.0-46.0); HGB 12.3 g/dL (11.2-15.7); MCH 31.9 pg (27.0-33.0); MCHC 35.2 % (32.0-36.0); MCV 90 fL (80-95); MPV 12.4 fL (8.0-11.0); Platelet Count 163 10^3/uL (130-400); RBC 3.86 10^6/uL (3.93-5.22); RDW 14.5 % (11.7-14.6); RDW-SD 47.8 fL; WBC 20.14 10^3/uL (4.4-10.8)
--- NOTE | 2022-04-21 08:02 | OBPPV_ITS ---
Date of service: 04/21/22 Time of Service: 08:02 Assessment and Plan Assessment and plan (1) Normal spontaneous vaginal delivery: Status: Acute Assessment and plan: Patient is now early in the day #1 status postnormal spontaneous vaginal delivery after labor induction due to advanced maternal age. (2) hemorrhage: Status: Acute Assessment and plan: Delivery was complicated by a hemorrhage which was multifactorial including vaginal laceration, uterine atony, slightly higher than average blood loss during the labor progress. Q. BL postdelivery was 1125, however there appears to be more ongoing blood loss during the time of delivery than anticipated. She did have post resuscitation including IV fluids, Pitocin, rectal misoprostol, TXA, Irineo-Synephrine given by anesthesia, and 2 units of packed red blood cells. At this point, she has no evidence of ongoing blood loss. Her post transfusion hemoglobin is stable. She is producing adequate urine, and her vital signs are stable. We will recheck a CBC in the morning. She will continue accurate I's and O's. She has a Freitas in place which can be removed removed later today if the patient is ambulating without difficulty. I would anticipate resumption of normal care (3) High risk due to assisted reproductive technology: Status: Acute (4) Advanced maternal age (AMA) in : Status: Acute Subjective Subjective Patient comments: Pain well controlled and Other (Fatigued) [place] baby status: Doing well, Rooming in and Strong Bonding Observed Narrative: Patient is seen and examined this morning. She was able to get small periods of sleep last night. Her pain is under good control. She is not feeling lightheaded, dizzy, or having chest pain. Her urine output is adequate currently. Vital signs are stable. Morning CBC was reviewed and hemoglobin is stable after 2 units of packed red blood cells. Lochia is physiologic. The events of delivery and including her hemorrhage were discussed with the patient and her and all questions were answered. Exam Physical Exam Vital signs: Temp Pulse Resp BP Pulse Ox 98.4 F 78 16 112/75 98 04/21/22 05:18 04/21/22 05:18 04/21/22 05:18 04/21/22 05:18 04/21/22 05:18 Vital Signs Reviewed: Yes Narrative: Blood pressure is stable. Pulse is no longer elevated. Constitutional Constitutional: no acute distress HEENT Exam HEENT Exam: Normal Neck Exam Neck Exam: Normal Respiratory Exam Respiratory Exam: Normal Cardiovascular Exam Cardiovascular Exam: Normal Abdominal Exam Comments: Soft, uterus firm Fundal Exam Fundus: Below Umbilicus and Firm Extremities Exam Extremity Exam: Normal; negative Calf Tenderness or Edema Skin Exam Skin Exam: Normal Psychiatric Exam Psychiatric Exam: Normal DetailedPsychiatric Exam Psych Exam: Normal Affect, Normal Thougth Process, Cooperative, Good Insight and Good Judgement Results Hemoglobin/Hematocrit: Hgb 12.3 g/dL (11.2-15.7) 04/21/22 05:52 Hct 34.9 % (36.0-46.0) L 04/21/22 05:52 Abnormal Lab Findings: Abnormal Labs 04/20/22 04/20/22 04/21/22 09:15 09:15 00:43 WBC 11.00 H 22.62 H RBC 3.29 L Hgb 10.5 L D Hct 31.0 L MPV 11.8 H 12.1 H Absolute Neutrophils 18.10 H Absolute Monocytes 2.71 H Crossmatch See Detail 04/21/22 05:52 WBC 20.14 H RBC 3.86 L Hgb Hct 34.9 L MPV 12.4 H Absolute Neutrophils Absolute Monocytes Crossmatch Additional Findings Results: Hemoglobin stabilized at 12.3. Elevated white blood cell count which appears to be from marginalization and acute blood loss. We will continue to monitor. We will continue to monitor for signs and symptoms of infection. Hemorrrhage Note Hemorrhage Recognized Date Hemorrhage Recognized: 04/20/22 Time Hemorrhage Recognized: 11:45 Call for Help Date: 04/20/22 Time: 11:45 2nd RN in Room Date: 04/20/22 Provider in Room Date: 04/20/22 Bimanual Uterine Compression Date: 04/20/22 Time: 11:45 RN Universal Winding Machine Operator Notified Date: 04/20/22 QBL Scale in Room Date: 04/20/22 OB Emergency Cart at Bedside Date: 04/20/22 Blood Started Date: 04/21/22 Time: 01:00 Total Blood Loss for PPH Event Quantitative Blood Loss: 112 Labs Drawn Labs Drawn: Yes
[2022-04-21] MEDS: Acetaminophen 325 MG TAB 650 MG PO ×2 (10:52→20:06)
[2022-04-21] MEDS: Ibuprofen 600 MG TAB PO ×2 (10:53→20:06)
--- NOTE | 2022-04-21 11:23 | W.ANESPOSTOP ---
Postoperative Evaluation Date, Time and Location Date Performed: 04/21/22 Time Performed: 11:24 Patient Location: Obstetrics ([facility]) Vital Signs Most Recent Imported Vital Signs: Vital signs reviewed at bedside with EVITA Pandey, most recent have not been entered into recored. Patient regular and in the 80s while lying in bed, 103 and regular when standing. BP stable in the 90s systolic. Pain Score Most Recent Pain Score: Denies discomfort to me. Assessment Mental Status: Awake (Alert & Oriented to Patient Baseline) Airway and Respiratory Function: Patent airway with normal (patient baseline) respiratory exam Cardiovascular Function: Hemodynamically Stable Hydration Status: Adequately Hydrated Nausea & Vomiting: No Nausea or Vomiting Pain: Pt. Denies Any Pain Peripheral Nerve Block: Other (Epidural appropriately resolved, denied complaint, denied headache, denied backpain. Per EVITA Pandey catheter removed with tip intact.) Teaching Patient Teaching: Other (Educated to contacting anesthesia if any concerns. )
[2022-04-21] MEDS: Hamamelis Leaf/Glycerin 100 EACH BOX PR (15:09)
[2022-04-21] MEDS: Dibucaine 1% 28 GM TUBE TP (15:09)
[2022-04-21] MEDS: Prenatal Multivitamin w/CA,FE TAB 1 TAB PO (20:04)
[2022-04-21] MEDS: Docusate Sodium 100 MG CAP PO (20:05)
[2022-04-21] MEDS: Magnesium Gluconate 500 MG TAB 250 MG PO (20:06)
[2022-04-21] MEDS: Citalopram 20 MG TAB PO (20:06)
[2022-04-22 05:57] VITALS: BP 110/70; PULSE 83; RESP 16; TEMP 37; O2SAT 100
[2022-04-22 05:57] LABS: Abs Immature Grans 0.15 10^3/uL (0.0-0.06); Absolute Basophil Count 0.06 10^3/uL (0.0-0.2); Absolute Eosinophil Count 0.13 10^3/uL (0.0-0.7); Absolute Lymphocyte Count 2.19 10^3/uL (1.2-3.4); Absolute Monocyte Count 1.17 10^3/uL (0.1-0.8); Basophils % 0.4; Eosinophils % 0.9; HCT 30.4 % (36.0-46.0); HGB 10.4 g/dL (11.2-15.7); Lymphocytes % 14.8; MCHC 34.2 % (32.0-36.0); MCV 91 fL (80-95); Monocytes % 7.9; Platelet Count 166 10^3/uL (130-400); RBC 3.36 10^6/uL (3.93-5.22); RDW-SD 49.1 fL
[2022-04-22 08:00] VITALS: BP 111/74; PULSE 94; RESP 14; TEMP 37.1
[2022-04-22] MEDS: Ibuprofen 600 MG TAB PO ×2 (08:27→20:05)
[2022-04-22] MEDS: Acetaminophen 325 MG TAB 650 MG PO ×2 (08:27→20:04)
--- NOTE | 2022-04-22 11:10 | W.PM.OBPNV1 ---
Date of service: 04/22/22 Time of Service: 11:10 Assessment and Plan Assessment and plan (1) Normal spontaneous vaginal delivery: Status: Acute Assessment and plan: Crampy post ambulatory to status post normal spontaneous vaginal delivery. Patient hemorrhage requiring 2 units of packed red Blood cell ass. Vital signs and hemoglobin are stable. WBC Is improving. Anticipate discharge home tomorrow . (2) hemorrhage: Status: Acute Assessment and plan: Currently stable Subjective Subjective Interval history: Patient seen this morning. Doing much better. Had some sleep last night. Working on breast-feeding, and supplementing her . She has little pain. She does feel some discomfort in the perineum. She is voiding on her own. She has been afebrile. Patient comments: No complaints and Tolerating diet [place] baby status: Doing well, Supplemental feeding going well and Strong Bonding Observed Narrative: will perform circumcision tomorrow on Exam Physical Exam Vital signs: Temp Pulse Resp BP Pulse Ox 98.8 F 94 H 14 111/74 100 04/22/22 08:00 04/22/22 08:00 04/22/22 08:00 04/22/22 08:00 04/22/22 05:57 Vital Signs Reviewed: Yes Constitutional Constitutional: no acute distress HEENT Exam HEENT Exam: Normal Neck Exam Neck Exam: Normal Respiratory Exam Respiratory Exam: Normal Cardiovascular Exam Cardiovascular Exam: Normal Abdominal Exam Abdomen: Other (soft and non-tender) Fundal Exam Fundus: Below Umbilicus and Firm Extremities Exam Extremity Exam: Normal and Edema (2+ bilateral); negative Calf Tenderness Skin Exam Skin Exam: Normal Neurological Exam Neurological Exam: Normal Psychiatric Exam Psychiatric Exam: Normal Results Hemoglobin/Hematocrit: Hgb 10.4 g/dL (11.2-15.7) L 04/22/22 05:39 Hct 30.4 % (36.0-46.0) L 04/22/22 05:39 Abnormal Lab Findings: Abnormal Labs 04/20/22 04/20/22 04/21/22 09:15 09:15 00:43 WBC 11.00 H 22.62 H RBC 3.29 L Hgb 10.5 L D Hct 31.0 L RDW MPV 11.8 H 12.1 H Absolute Neutrophils 18.10 H Absolute Monocytes 2.71 H Crossmatch See Detail 04/21/22 04/22/22 05:52 05:39 WBC 20.14 H 14.80 H RBC 3.86 L 3.36 L Hgb 10.4 L Hct 34.9 L 30.4 L RDW 15.0 H MPV 12.4 H 12.0 H Absolute Neutrophils 11.10 H Absolute Monocytes 1.17 H Crossmatch Hemorrrhage Note Hemorrhage Recognized Date Hemorrhage Recognized: 04/20/22 Time Hemorrhage Recognized: 11:45 Call for Help Date: 04/20/22 Time: 11:45 2nd RN in Room Date: 04/20/22 Provider in Room Date: 04/20/22 Bimanual Uterine Compression Date: 04/20/22 Time: 11:45 RN Brewery Representative Notified Date: 04/20/22 QBL Scale in Room Date: 04/20/22 OB Emergency Cart at Bedside Date: 04/20/22 Blood Started Date: 04/21/22 Time: 01:00 Total Blood Loss for PPH Event Quantitative Blood Loss: 112 Labs Drawn Labs Drawn: Yes
[2022-04-22 16:45] VITALS: BP 115/77; PULSE 84; RESP 16; TEMP 36.6
[2022-04-22 19:39] VITALS: BP 108/74; PULSE 95; RESP 18; TEMP 36.8; O2SAT 100
[2022-04-22] MEDS: Prenatal Multivitamin w/CA,FE TAB 1 TAB PO (20:04)
[2022-04-22] MEDS: Citalopram 20 MG TAB PO (20:04)
[2022-04-22] MEDS: Docusate Sodium 100 MG CAP PO (20:05)
[2022-04-22] MEDS: Magnesium Gluconate 500 MG TAB 250 MG PO (20:05)
--- NOTE | 2022-04-23 06:52 | OBPPV_ITS ---
Date of service: 04/23/22 Time of Service: 06:52 Assessment and Plan Assessment and plan (1) Normal spontaneous vaginal delivery: Status: Acute Assessment and plan: day #3. Doing well. Discharge home today. (2) hemorrhage: Status: Acute Assessment and plan: Stable, normal physiologic lochia (3) High risk due to assisted reproductive technology: Status: Acute Subjective Subjective Interval history: Patient seen and examined this morning. Doing well. Vital signs are stable. No fevers or chills. Desires discharge home today. Surprise circumcision today Patient comments: No complaints and Pain well controlled Patient's Mood: good Exam Physical Exam Vital signs: Temp Pulse Resp BP Pulse Ox 98.2 F 95 H 18 108/74 100 04/22/22 19:39 04/22/22 19:39 04/22/22 19:39 04/22/22 19:39 04/22/22 19:39 Vital Signs Reviewed: Yes Constitutional Constitutional: no acute distress and cooperative HEENT Exam HEENT Exam: Normal Neck Exam Neck Exam: Normal Abdominal Exam Comments: Doing well. Uterus firm Fundal Exam Fundus: Below Umbilicus and Firm Extremities Exam Extremity Exam: Normal and Edema (2 + B/L); negative Calf Tenderness Skin Exam Skin Exam: Normal Neurological Exam Neurological Exam: Normal Psychiatric Exam Psychiatric Exam: Normal Results Hemoglobin/Hematocrit: Hgb 10.4 g/dL (11.2-15.7) L 04/22/22 05:39 Hct 30.4 % (36.0-46.0) L 04/22/22 05:39 Abnormal Lab Findings: Abnormal Labs 04/20/22 04/20/22 04/21/22 09:15 09:15 00:43 WBC 11.00 H 22.62 H RBC 3.29 L Hgb 10.5 L D Hct 31.0 L RDW MPV 11.8 H 12.1 H Absolute Neutrophils 18.10 H Absolute Monocytes 2.71 H Crossmatch See Detail 04/21/22 04/22/22 05:52 05:39 WBC 20.14 H 14.80 H RBC 3.86 L 3.36 L Hgb 10.4 L Hct 34.9 L 30.4 L RDW 15.0 H MPV 12.4 H 12.0 H Absolute Neutrophils 11.10 H Absolute Monocytes 1.17 H Crossmatch Hemorrrhage Note Hemorrhage Recognized Date Hemorrhage Recognized: 04/20/22 Time Hemorrhage Recognized: 11:45 Call for Help Date: 04/20/22 Time: 11:45 2nd RN in Room Date: 04/20/22 Provider in Room Date: 04/20/22 Bimanual Uterine Compression Date: 04/20/22 Time: 11:45 RN Resilient Tile Installer Notified Date: 04/20/22 QBL Scale in Room Date: 04/20/22 OB Emergency Cart at Bedside Date: 04/20/22 Blood Started Date: 04/21/22 Time: 01:00 Total Blood Loss for PPH Event Quantitative Blood Loss: 112 Labs Drawn Labs Drawn: Yes
--- NOTE | 2022-04-23 07:03 | W.PM.OBDISCH ---
Date of service: 04/23/22 Time of Service: 07:04 DS: Diagnosis Discharge Diagnosis (1) Normal spontaneous vaginal delivery: Status: Acute Asessment and Plan: day #3 status post normal spontaneous vaginal delivery with complication of hemorrhage. (2) hemorrhage: Status: Acute Asessment and Plan: Received uterotonic's, and Irineo-Synephrine, along with 2 units of packed red blood cells. (3) High risk due to assisted reproductive technology: Status: Acute Discharge Plan Disposition Patient Disposition: HOME Condition: Good Discharge Details Reason For Visit: IUP at 39 Weeks Admit Date/Time: 04/20/22 08:56 Admit Provider: Maria R Campo Attending Provider: Maria R Campo Primary Care Provider: Gela Suarez [place] [facility] Hospital Course: Patient presented for labor induction at term due to advanced maternal age. She was noted to be in early active labor at that point, dilated 3 cm. She had Pitocin augmentation of her labor artificial rupture of membranes for light meconium stained fluid. she had epidural anesthesia for pain control. She progressed to completely dilated and with good maternal effort had a normal spontaneous vaginal delivery after approximately 2 hours and 20 minutes of maternal effort. She did have a significant hemorrhage with a qualitative blood loss of 1125 ml. She received Pitocin, rectal Cytotec, TXA, IV fluids, anesthesia was present and administered 4 doses of Irineo-Synephrine to elevate her blood pressure. Her hemorrhage resolved, vital signs stabilized, patient became hemodynamically stable, and completed the remainder of a normal course. Hemorrhage was multifactorial, which included increased blood loss during the delivery process, small amount of uterine atony afterwards, third-degree perineal laceration. Decreasing with the family and screen was performed. The remainder of her course was appropriate. She was discharged to home, early day #3. She will be seen in the office in 2 and 6 weeks or sooner as needed. Discharge hemoglobin was stable at 10.4. She remained afebrile throughout the course of her care. Home Meds and New Rx's Prescriptions: New ibuprofen 800 mg tablet 800 mg PO Q8H PRNQty: 30 1RF Continued prenat.vits,petr,gqf-agmk-[id number] Tablet 1 tab PO DAILY citalopram 20 mg tablet 20 mg PO DAILY Qty: 90 4RF magnesium 250 mg tablet 250 mg PO DAILY docusate sodium 100 mg tablet 100 mg PO DAILY guar gum Packet 1 tbsp PO DAILY Rx Instructions: mix into at least 4 oz water or juice before administering Discontinued aspirin [Adult Aspirin Regimen] 81 mg tablet,delayed release (DR/EC) 81 mg PO DAILY Rx Instructions: pt takes 162 mg QOD. Discharge Instructions Additional Instructions: Followed by follow-[facility] with [facility] 2 and 6 weeks Stand Alone Forms: BC Post Vaginal Deliver Activity:: Pelvic rest Equipment/Supplies:: No Equipment Needed Diet:: As Tolerated Discharge Orders Discharge Orders: Discharge Order (Routine); Ordered 04/23/22 Ordered By: Faustina Aguilar OB:DS Summary Summary Vaginal Delivery Method: Spontaneaous Episiotomy Description: None Laceration Description: Perineal and Periurethral Laceration Extension: Third Degree Contraception Discussed Contraception Discussed: Yes Contraceptive Plan: Undecided, [place] Infant Gender-Baby A: Male weight: 8 lb 8.863 oz Status at Discharge Functional status at discharge: independent ambulation Overall status at discharge: patient is progressing back to baseline Mental Status: mental status grossly normal Speech and Movement: speech and movement normal Mood: congruent mood Affect: normal affect Exam Physical Exam Vital signs: Temp Pulse Resp BP Pulse Ox 98.2 F 95 H 18 108/74 100 04/22/22 19:39 04/22/22 19:39 04/22/22 19:39 04/22/22 19:39 04/22/22 19:39 Narrative: See physical exam from progress note 04/23/2022 [facility] All Active Problems (Updated 04/21/22 @ 08:08 by Faustina Aguilar DO) hemorrhage (Acute) Normal spontaneous vaginal delivery (Acute) High risk due to assisted reproductive technology (Acute) Placenta previa affecting delivery (Acute) Encounter for supervision of normal intrauterine in primigravida, antepartum (Acute) (Acute) History of PCOS (Acute) Family history of ankylosing spondylitis (Acute) Family history of multiple sclerosis (Acute) Advanced maternal age (AMA) in (Acute) conceived through in vitro fertilization (Acute) Anxiety (Acute) Medical History (Updated 04/21/22 @ 08:08 by Faustina Aguilar DO) Elevated hematocrit PCOS (polycystic ovarian syndrome) Plantar wart of right foot Surgical History (Updated 10/09/21 @ 10:17 by Ruthie Santiago CNM) [place] teeth extracted Family History (Updated 10/09/21 @ 10:24 by Ruthie Santiago CNM) Mother , 61 Myelofibrosis Depression Hyperlipidemia Father Depression Hyperlipidemia Sarcoidosis Sister Depression Multiple sclerosis PCOS (polycystic ovarian syndrome) Brother Alcohol use disorder Ankylosing spondylitis of multiple sites in spine Maternal Grandfather , 70 Lung cancer Paternal Grandfather , 62 Pancreas cancer Maternal Grandmother , 78 Asthma Heart disease Paternal Grandmother , 61 Melanoma Breast cancer Self PCOS (polycystic ovarian syndrome) Social History (Updated 12/11/21 @ 08:30 by Jessica Roth MD) Smoking/Tobacco Use Status: Never Second Hand Exposure: Yes Smoking risk assessment performed?: Yes Alcohol Intake: current Alcohol Intake frequency: holidays/special occasions only Alcohol type: beer Drug use: Never Substance use type: does not use Caregiver/Support person: No Household members: spouse, children and other Details: [place], Shawn, Housing: house Communication Needs: None Do you need help understanding health information?: Never current occupation: [employer] coordinator. Pets and animals: Yes Pets and animals: cat(s), dog(s) and farm animals Sexually active: Yes Do you think of yourself as: straight/heterosexual Current gender identity: female What is your relationship status?: How often do you talk on the phone with friends or family?: three or more times per week How often do you get together with friends or relatives?: twice per week Do you belong to any clubs or organized social groups?: no Panel score (0-1 are the most socially isolated patients): 2 What type of physical activity do you participate in: walking Duration: 15-30 minutes/day Frequency: 3-4 times per week Opal/Sikh: Bahai Special opal needs: No Seatbelt use: always Helmet use: Yes Helmet use: always Drive intox or ride w/intox driver retraining instructor: No Additional Social history: 2 adopted children (one adopted at in 2010 and one foster to adopt born in 2013) History History 1 Para 0 Hx # Term Pregnancies 0 Multiple births 0 Hx # Pregnancies 0 Ectopic pregnancies 0 AB induced 0 Hx Number of Living Children 0 AB spontaneous 0 DS: Data Vitals/I&O Vitals and I&O: Vital Signs Temperature 98.2 F 04/22/22 19:39 Pulse 95 H 04/22/22 19:39 Pulse Rhythm Regular 04/22/22 19:39 Respiratory Rate 18 04/22/22 19:39 Respiratory Depth Normal 04/21/22 20:15 Blood Pressure 108/74 04/22/22 19:39 Blood Pressure Mean 85 04/22/22 19:39 Pulse Oximetry 100 04/22/22 19:39 Oxygen Delivery Method Room Air 04/21/22 05:18 Oxygen Flow Rate 0 04/21/22 05:18 Pain Level 5 04/22/22 08:27 Comment 119/72 P=103 sitting 04/21/22 20:15 Intake & Output 04/22/22 04/22/22 04/23/22 11:59 23:59 11:59 Intake Total 750 / 750 Output Total 1300 / 1300 Balance -550 / -550 Intake: Oral 750 / 750 Output: Urine 1300 / 1300 Other: Urine Color Yellow Yellow Urine Appearance Clear
[2022-04-23 08:47] VITALS: BP 108/56; PULSE 83; RESP 16; TEMP 36.6; O2SAT 100
== END 2022-04-23 09:00 | disposition home or self-care (01) | DRG 768 ==
PROVIDERS: Obstetrics & Gynecology; Admitting Provider Obstetrics & Gynecology; PCP Nurse Practitioner; Visit Provider Obstetrics & Gynecology
DX: O99.284 Endocrine, nutritional and metabolic diseases complicating childbirth (principal); Z37.0 Single live birth; O99.344 Other mental disorders complicating childbirth; O44.03 Complete placenta previa NOS or without hemorrhage, third trimester; O72.1 Other immediate postpartum hemorrhage; O70.20 Third degree perineal laceration during delivery, unspecified; E28.2 Polycystic ovarian syndrome; F41.9 Anxiety disorder, unspecified; Z3A.40 40 weeks gestation of pregnancy
CPT/HCPCS: 36415; 85027; 86850; 86900; 86901; 86920; 87635; 85025; 85610; 85730; 88307; P9016